=== PATIENT | female | born 1950 | race Hispanic/Latino ===

== ENCOUNTER 2022-08-03 09:52 | Outpatient (CLI) | payer MEDICARE | END 2022-08-03 09:53 | disposition home or self-care (01) | LOC: CSHMRI 09:52 | PROVIDERS: ATTEND Family Medicine | DX: F02.B3 Dementia in other diseases classified elsewhere, moderate, with mood disturbance (principal); I63.9 Cerebral infarction, unspecified; R90.82 White matter disease, unspecified | CPT/HCPCS: 70551 ==